=== PATIENT | female | born 1995 | race Caucasian/White ===

== ENCOUNTER 2020-07-20 08:55 | Emergency (ER) | payer OTHER, BC ==
[~2020-07-20] VITALS: Ht 172.7 cm; Wt 89.0 kg
[2020-07-20] MEDS ORDERED: METOCLOPRAMIDE 5 MG/ML, 2ML IVPush ONE (09:30)
[2020-07-20] MEDS ORDERED: SODIUM CHLORIDE FLUSH 10ML SYR IVF ONE (09:30)
[2020-07-20] MEDS ORDERED: DICYCLOMINE 10 MG/ML, 2ML IM ONE (09:30)
[2020-07-20] MEDS ORDERED: SODIUM CHLORIDE 0.9% 1,000ML IVBOLUS ONE (09:30)
[2020-07-20] MEDS ORDERED: FAMOTIDINE 20 MG/2 ML IVPush ONE (09:30)
--- NOTE | 2020-07-20 09:45 | NUR ---
assumed care of pt. pt here c/o LUQ pain and states that she woke up this AM with s/o N/V/D. pt went to UC and was medicated with zofran [employer]ER[employer]GR[employer] no vomiting noted at thsi time. pt is aware that urine sample needed. SO at bedside
[2020-07-20 09:52] LABS: BASOPHILS % (AUTO) 0 % (0-1); EOSINOPHILS % (AUTO) 0 % (1-7); LYMPHOCYTES % (AUTO) 3 % (22-44); MEAN CORPUSCULAR HEMOGLOBIN 29.5 pg (27.0-34.8); MEAN CORPUSCULAR HGB CONC 34.3 g/dL (32.4-35.8); MEAN PLATELET VOLUME 9.3 fL (7.4-10.4); MONOCYTES % (AUTO) 5 % (2-9); NEUTROPHILS % (AUTO) 92 % (42-75); PLATELET COUNT 221 x10^3/uL (130-400); RED BLOOD COUNT 5.68 x10^6/uL (3.82-5.3); RED CELL DISTRIBUTION WIDTH 13.2 % (9.6-15.2)
[2020-07-20 10:06] LABS: ALBUMIN 4.1 g/dL (3.4-5.0); ANION GAP 9 mmol/L (5-15); CALCIUM 8.4 mg/dL (8.5-10.1); CHLORIDE 107 mmol/L (98-107)
[2020-07-20 10:11] LABS: ALANINE AMINOTRANSFERASE 38 U/L (12-78); ALKALINE PHOSPHATASE 77 U/L (45-117); BILIRUBIN,TOTAL 1.6 mg/dL (0.2-1.0); CREATININE 0.94 mg/dL (0.55-1.02); TOTAL PROTEIN 7.3 g/dL (6.4-8.2)
[2020-07-20] MEDS ORDERED: DICYCLOMINE 10 MG/ML, 2ML ONE (10:16)
[2020-07-20] MEDS ORDERED: METOCLOPRAMIDE 5 MG/ML, 2ML ONE (10:16)
[2020-07-20] MEDS ORDERED: FAMOTIDINE 20 MG/2 ML ONE (10:16)
[2020-07-20 10:17] LABS: MD SCAN
--- NOTE | 2020-07-20 10:31 | NUR ---
pt has been medicated per order. no vomiting or diarrhea noted. lights dimmed and pt positioning for comfort. family at bedside pt aware that urine sample needed
[2020-07-20] MEDS ORDERED: MAALOX/HYOSCYAMINE/LIDOCAINE 45 ML BTL PO ONE (11:00)
[2020-07-20] MEDS ORDERED: MAALOX/HYOSCYAMINE/LIDOCAINE 45 ML BTL ONE (11:17)
[2020-07-20 11:36] VITALS: BP 99/55
== END 2020-07-20 11:46 | disposition home or self-care (01) ==
LOC: ED 11:33
DX: K52.9 Noninfective gastroenteritis and colitis, unspecified (principal); R11.2 Nausea with vomiting, unspecified
CPT/HCPCS: 36415; 80053; 83690; 84703; 85025; 96361; 96372; 96374; 96375; 99284; J0500; J2765; J7030